=== PATIENT | male | born 1980 | race American Indian/Alaskan Native ===

== ENCOUNTER 2019-10-14 14:55 | Inpatient (IN) | payer OTHER ==
--- NOTE | 2019-10-14 16:20 | XRay Report ---
CHEST 2 VIEWS INDICATION: SOB. COMPARISON: 10/05/2018 FINDINGS: Support devices: None. Heart: Within normal limits. Lungs/pleura: Scattered bilateral focal lung densities have developed which are most pronounced in th e lingular region. No pleural fluid or pneumothorax. No pneumothorax. Additional findings: None. IMPRESSION: Patchy bilateral lung densities concerning for atypical pneumonia or viral infection. Please correlat e with the patient's clinical presentation. Signer Name: Stu Boston Jr, MD Signed: 10/14/2019 4:16 PM Workstation Name: [id number]
--- NOTE | 2019-10-14 17:28 | Emergency Department Report ---
ED Shortness of Breath HPI - General Chief Complaint: Dyspnea/Respdistress Stated Complaint: ASTHMA Time Seen by Provider: 10/14/19 16:40 Source: patient Mode of arrival: Ambulatory Limitations: No Limitations - History of Present Illness Initial Comments: Mr. Osborn is a 39-year-old male with history of intermittent asthma for the last 12 years who presents with 3 days of fever cough wheezing shortness of breath. Generalized malaise and fatigue. 2 weeks ago travel to and from [facility] to attend a . MD Complaint: shortness of breath, cough -: Gradual, days(s) (3) Severity: moderate Consistency: constant Improves With: nothing Worsens With: nothing Known History Of: asthma Context: recent travel Associated Symptoms: fever, cough, other (Shortness of breath wheezing) - Related Data Previous Rx's Medication Instructions Recorded Last Taken Type Albuterol Sulfate [Ventolin Hfa] 18 gm IH QID PRN #1 hfa.aer.ad 10/05/18 Unknown Rx Ibuprofen [Motrin 800 MG tab] 800 mg PO Q8HR PRN #15 tablet 10/05/18 Unknown Rx Allergies Allergy/AdvReac Type Severity Reaction Status Date / Time chocolate flavor Allergy Unknown Verified 10/14/19 14:58 shellfish derived Allergy Unknown Verified 10/14/19 14:58 strawberry Allergy Unknown Verified 10/14/19 14:58 ED Review of Systems ROS: Stated complaint: ASTHMA Other details as noted in HPI Comment: All other systems reviewed and negative Constitutional: fever Respiratory: cough, shortness of breath, wheezing ED Past Medical Hx - Past Medical History Previous Medical History?: Yes Hx Asthma: Yes - Surgical History Past Surgical History?: No - Social History Smoking Status: Never Smoker - Medications Home Medications: Home Medications Medication Instructions Recorded Confirmed Last Taken Type Albuterol Sulfate [Ventolin Hfa] 18 gm IH QID PRN #1 hfa.aer.ad 10/05/18 Unknown Rx Ibuprofen [Motrin 800 MG tab] 800 mg PO Q8HR PRN #15 tablet 10/05/18 Unknown Rx ED Physical Exam - General Limitations: No Limitations General appearance: alert, in no apparent distress - Head Head exam: Present: atraumatic, normocephalic - Eye Eye exam: Present: normal appearance - ENT ENT exam: Present: mucous membranes moist - Neck Neck exam: Present: normal inspection, full ROM - Respiratory Respiratory exam: Present: normal lung sounds bilaterally. Absent: respiratory distress, wheezes, rales, rhonchi, chest wall tenderness, accessory muscle use - Cardiovascular Cardiovascular Exam: Present: regular rate, normal rhythm, normal heart sounds. Absent: systolic murmur, diastolic murmur, rubs, gallop - GI/Abdominal GI/Abdominal exam: Present: soft, normal bowel sounds - Rectal Rectal exam: Present: deferred - Extremities Exam Extremities exam: Present: normal inspection - Back Exam Back exam: Present: normal inspection - Neurological Exam Neurological exam: Present: alert, oriented X3 - Psychiatric Psychiatric exam: Present: normal affect, normal mood - Skin Skin exam: Present: warm, dry, intact, normal color. Absent: rash ED Course Vital Signs 10/14/19 10/14/19 15:03 16:15 Temperature 98.0 F Respiratory 20 Rate Blood Pressure 139/86 O2 Sat by Pulse 96 Oximetry ED Medical Decision Making - Lab Data Result diagrams: 10/14/19 16:52 10/14/19 17:28 - Radiology Data Radiology results: report reviewed Chest x-ray revealed scattered bilateral focal lung densities patchy bilateral lung disease concerning for atypical pneumonia - Medical Decision Making Mr. Osborn is a 39-year-old male with history of asthma who presents with shortness of breath fever cough for the past 3 days. With history of recent travel multifocal pneumonia strongly suspect COVID 19 infection. PUI survey has been completed with [facility]. Plaquenil zinc therapy initiated in the emergency department. Patient is requiring oxygen therapy. Room air saturation while at rest 87%. Admitted to the hospitalist service Work-up notable for elevated CRP, LDH, ferritin, d-dimer Critical care attestation.: If time is entered above; I have spent that time in minutes in the direct care of this critically ill patient, excluding procedure time. ED Disposition Clinical Impression: Acute respiratory failure with hypoxia, Suspected 2019 novel coronavirus infection Disposition: OP ADMIT IP TO THIS HOSP Is pt being admited?: Yes Does the pt Need Aspirin: No Condition: Stable
[2019-10-14] MEDS: cefTRIAXone/NS 2 GM/100 ML 2 GM/100 ML BAG IV SCH (17:30)
[2019-10-14 17:42] LABS: Basophils % (Auto) 0.3 % (0.0-1.8); Eosinophils % (Auto) 0.1 % (0.0-4.3); Hematocrit 44.2 % (35.5-45.6); Lymphocytes # (Auto) 1.6 K/mm3 (1.2-5.4); Mean Corpuscular HGB Conc 34 % (32-34); Mean Corpuscular Volume 81 fl (84-94); Monocytes # (Auto) 0.9 K/mm3 (0.0-0.8); Monocytes % (Auto) 10.8 % (0.0-7.3); Platelet Count 339 K/mm3 (140-440); Red Blood Count 5.49 M/mm3 (3.65-5.03); Red Cell Distribution Width 14.2 % (13.2-15.2)
[2019-10-14 17:57] LABS: Alanine Aminotransferase 47 units/L (7-56); Albumin 3.7 g/dL (3.9-5); BUN/Creatinine Ratio 10; Blood Urea Nitrogen 9 mg/dL (9-20); Calcium 9.1 mg/dL (8.4-10.2); Hemolysis Index 6
--- NOTE | 2019-10-14 18:36 | History and Physical Report ---
History of Present Illness Chief complaint: I am having problems breathing History of present illness: 39 YO Male with Mild Intermittent Asthma, Obesity presents to ED for evaluation. Pt states that he has experienced generalized weakness, malaise, body aches, dry cough, and shortness of breath over the past 3 with persistently worsening symptoms over the same timeframe. Pt transported to [facility] via private vehicle. Pt seen and evaluated in ED. Lab and imaging studies reviewed. Pt found to have bilateral infiltrates on Chest X ray and is consistent with Pneumonia as well as pulse oximetry of 87% on room air which is consistent with an acute hypoxemic respiratory failure. Patient also reports clinical symptoms concerning for COVID-19 infection. COVID 19 screening documentation submitted to health department by ED staff. Pt initiated on Pneumonia protocol and admitted to Medical Floor. Patient acknowledges recent travel to [place] by airplane approximately 2 weeks ago. Patient reports onset of symptoms approximately 1 week after his return from [place]. Pt denies fever, chills, CP, Palpitations, NVD, Trauma, BRBPR, Skin Rash, or Known ill contacts. No prior admission for review. No medication listed for reconciliation at time of admission. Past History Past Medical History: other (See HPI) Past Surgical History: No surgical history, Other (Reviewed) Social history: , lives with family. denies: smoking, alcohol abuse, prescription drug abuse Family history: hypertension Medications and Allergies Allergies Allergy/AdvReac Type Severity Reaction Status Date / Time chocolate flavor Allergy Unknown Verified 10/14/19 14:58 shellfish derived Allergy Unknown Verified 10/14/19 14:58 strawberry Allergy Unknown Verified 10/14/19 14:58 Home Medications Medication Instructions Recorded Confirmed Last Taken Type Albuterol Sulfate [Ventolin Hfa] 18 gm IH QID PRN #1 hfa.aer.ad 10/05/18 Unknown Rx Ibuprofen [Motrin 800 MG tab] 800 mg PO Q8HR PRN #15 tablet 10/05/18 Unknown Rx Active Meds: Active Medications Hydroxychloroquine Sulfate (Plaquenil) 400 mg PO BID OVI Stop: 10/14/19 22:01 Hydroxychloroquine Sulfate (Plaquenil) 200 mg PO BID OVI Stop: 10/18/19 22:01 Ceftriaxone Sodium (Rocephin/Ns 2 Gm/100 Ml) 2 gm in 100 mls @ 200 mls/hr IV Q24HR OVI; Protocol Last Admin: 10/14/19 17:30 Dose: 200 mls/hr Documented by: Zinc Sulfate (Zinc Sulfate) 220 mg PO BID [facility] Review of Systems Constitutional: fatigue, weakness, malaise, lethargy, no weight loss, no weight gain, no fever, no chills Ears, nose, mouth and throat: no ear pain, no ear discharge, no tinnitis, no decreased hearing, no nose pain Cardiovascular: no chest pain, no orthopnea, no palpitations Respiratory: cough, shortness of breath, no hemoptysis, no congestion, no wheezing, no pleurisy, no snoring Gastrointestinal: no nausea, no vomiting, no diarrhea, no constipation Genitourinary Male: no hematuria, no flank pain, no discharge, no urinary frequency, no urinary hesitancy Rectal: no pain, no incontinence, no bleeding Musculoskeletal: no neck stiffness, no neck pain, no shooting arm pain, no arm numbness/tingling, no low back pain Integumentary: no rash, no pruritis, no redness, no sores, no wounds Neurological: no transient paralysis, no paralysis, no weakness, no parathesias, no numbness, no tingling, no seizures Psychiatric: no anxiety, no memory loss, no change in sleep habits, no sleep disturbances, no insomnia, no hypersomnia Endocrine: no cold intolerance, no heat intolerance, no polyphagia, no excessive thirst, no polydipsia Hematologic/Lymphatic: no easy bruising, no easy bleeding, no lymphadenopathy, no lymphedema Allergic/Immunologic: no urticaria, no allergic rhinitis, no persistent infections, no anaphylaxis Exam - Constitutional Vitals: Temp Pulse Resp BP Pulse Ox 98.0 F 20 139/86 96 10/14/19 15:03 10/14/19 15:03 10/14/19 15:03 10/14/19 16:15 General appearance: Present: mild distress, obese - EENT Eyes: Present: PERRL ENT: hearing intact, clear oral mucosa - Neck Neck: Present: supple, normal ROM - Respiratory Respiratory effort: labored, accessory muscle use, stridor Respiratory: bilateral: diminished, rhonchi - Cardiovascular Heart Sounds: Present: S1 & S2. Absent: rub, click - Extremities Extremities: pulses symmetrical, No edema Peripheral Pulses: within normal limits - Abdominal General gastrointestinal: Present: soft, non-tender, non-distended, normal bowel sounds Male genitourinary: Present: normal - Integumentary Integumentary: Present: clear, warm, dry - Musculoskeletal Musculoskeletal: generalized weakness - Psychiatric Psychiatric: appropriate mood/affect, intact judgment & insight - Neurologic Neurologic: CNII-XII intact, moves all extremities Results - Labs CBC & Chem 7: 10/14/19 16:52 10/14/19 17:28 Labs: Abnormal lab results 10/14/19 10/14/19 10/14/19 Range/Units 16:52 16:52 16:52 RBC 5.49 H (3.65-5.03) M/mm3 MCV 81 L (84-94) fl MCH 27 L (28-32) pg Placer % (Auto) 10.8 H (0.0-7.3) % Placer # 0.9 H (0.0-0.8) K/mm3 D-Dimer 425.37 H (0-234) ng/mlDDU Sodium (137-145) mmol/L Chloride (98-107) mmol/L Glucose (75-100) mg/dL Ferritin 548.4 H (13.0-400.0) ng/mL AST (5-40) units/L Lactate Dehydrogenase (91-180) units/L C-Reactive Protein (0.00-1.30) mg/dL Albumin (3.9-5) g/dL 10/14/19 10/14/19 Range/Units 17:28 17:28 RBC (3.65-5.03) M/mm3 MCV (84-94) fl MCH (28-32) pg Placer % (Auto) (0.0-7.3) % Placer # (0.0-0.8) K/mm3 D-Dimer (0-234) ng/mlDDU Sodium 135 L (137-145) mmol/L Chloride 96.2 L (98-107) mmol/L Glucose 104 H (75-100) mg/dL Ferritin (13.0-400.0) ng/mL AST 41 H (5-40) units/L Lactate Dehydrogenase 453 H (91-180) units/L C-Reactive Protein 9.40 H (0.00-1.30) mg/dL Albumin 3.7 L (3.9-5) g/dL Assessment and Plan - Patient Problems (1) Bilateral pneumonia Current Visit: Yes Status: Acute Plan to address problem: Pneumonia protocol, IV antibiotic therapy, pulse oximetry, chest x-ray, CBC, CMP, blood culture, nebulizer therapy. (2) Obesity hypoventilation syndrome Current Visit: Yes Status: Acute Plan to address problem: Submental oxygen, nebulizer therapy, noninvasive positive pressure ventilation as clinically indicated. (3) Acute respiratory failure with hypoxia Current Visit: Yes Status: Acute Plan to address problem: Supplemental oxygen, nebulizer therapy, pulse oximetry, chest x-ray, supportive care, pulmonary toilet. (4) Suspected 2019 novel coronavirus infection Current Visit: Yes Status: Acute Plan to address problem: D-dimer, ferritin, LDH level, chest x-ray, screening documentation sent to health department. (5) DVT prophylaxis Current Visit: Yes Status: Acute Plan to address problem: SCD to bilateral lower extremities while in bed, prophylactic heparin
[2019-10-14] MEDS ORDERED: ONDANSETRON 4 MG/2 ML INJ IV PRN (18:38)
[2019-10-14] MEDS ORDERED: ACETAMINOPHEN 325 MG TAB PO PRN (18:38)
[2019-10-14] MEDS: HYDROXYCHLOROQUINE 200 MG TAB PO SCH ×2 (18:52→23:24)
[2019-10-14] MEDS: HEPARIN 5,000 UNIT/1 ML VIAL SUB-Q SCH (23:24)
[2019-10-14] MEDS: ZINC SULFATE 220 MG CAP PO SCH (23:24)
[2019-10-15 06:50] LABS: Basophils % (Auto) 0.4 % (0.0-1.8); Eosinophils % (Auto) 0.3 % (0.0-4.3); Hematocrit 45.1 % (35.5-45.6); Lymphocytes # (Auto) 1.4 K/mm3 (1.2-5.4); Lymphocytes % (Auto) 18.4 % (13.4-35.0); Mean Corpuscular HGB Conc 33 % (32-34); Mean Corpuscular Volume 81 fl (84-94); Monocytes # (Auto) 0.8 K/mm3 (0.0-0.8); Monocytes % (Auto) 11.2 % (0.0-7.3); Platelet Count 338 K/mm3 (140-440); Red Blood Count 5.58 M/mm3 (3.65-5.03)
[2019-10-15 07:17] LABS: BUN/Creatinine Ratio 12; Blood Urea Nitrogen 11 mg/dL (9-20); Hemolysis Index 141
[2019-10-15] MEDS: HEPARIN 5,000 UNIT/1 ML VIAL SUB-Q SCH ×2 (09:11→21:26)
[2019-10-15] MEDS: ZINC SULFATE 220 MG CAP PO SCH (09:11)
[2019-10-15] MEDS: HYDROXYCHLOROQUINE 200 MG TAB PO SCH ×2 (09:11→21:26)
[2019-10-15] MEDS: cefTRIAXone/NS 2 GM/100 ML 2 GM/100 ML BAG IV SCH (10:44)
[2019-10-16] MEDS ORDERED: MORPHINE 2 MG/1 ML INJ IV ONE (00:46)
[2019-10-16 08:49] LABS: C-Reactive Protein 9.2 mg/dL (0.00-1.30)
[2019-10-16] MEDS: HYDROXYCHLOROQUINE 200 MG TAB PO SCH ×2 (09:21→22:15)
[2019-10-16] MEDS: HEPARIN 5,000 UNIT/1 ML VIAL SUB-Q SCH ×2 (09:21→22:16)
[2019-10-16] MEDS: cefTRIAXone/NS 2 GM/100 ML 2 GM/100 ML BAG IV SCH (09:22)
[2019-10-16] MEDS: ZINC SULFATE 220 MG CAP PO SCH (11:30)
--- NOTE | 2019-10-16 14:28 | Progress Note ---
Assessment and Plan (1) Bilateral pneumonia Current Visit: Yes Status: Acute Plan to address problem: Cont abx Covid test pending Improving (2) Obesity hypoventilation syndrome Current Visit: Yes Status: Acute Plan to address problem: CPAP prn (3) Acute respiratory failure with hypoxia Current Visit: Yes Status: Acute Plan to address problem: O2 supplementL (4) Suspected 2019 novel coronavirus infection Current Visit: Yes Status: Acute Plan to address problem: iNFLAMMATORY MARKErS INCREASED (5) DVT prophylaxis Current Visit: Yes Status: Acute Plan to address problem: SCD to bilateral lower extremities while in bed, prophylactic heparin Subjective Date of service: 10/16/19 Objective - Constitutional Vitals: Vital Signs - 12hr 10/16/19 10/16/19 10/16/19 05:11 10:00 11:24 Temperature 98.1 F 97.5 F L Pulse Rate 96 H 84 Respiratory 18 24 Rate Blood Pressure 102/69 123/80 O2 Sat by Pulse 94 96 93 Oximetry General appearance: Present: no acute distress, well-nourished - EENT Eyes: PERRL, EOM intact ENT: hearing intact, clear oral mucosa Ears: bilateral: normal - Neck Neck: supple, normal ROM - Respiratory Respiratory effort: normal Respiratory: bilateral: CTA - Breasts Breasts: normal - Cardiovascular Rhythm: regular Heart Sounds: Present: S1 & S2. Absent: gallop, rub Extremities: pulses intact, No edema, normal color, Full ROM - Gastrointestinal General gastrointestinal: Present: soft, non-tender, non-distended, normal bowel sounds - Genitourinary Male genitourinary: normal - Integumentary Integumentary: clear, warm, dry - Musculoskeletal Musculoskeletal: 1, strength equal bilaterally - Neurologic Neurologic: moves all extremities - Psychiatric Psychiatric: memory intact, appropriate mood/affect, intact judgment & insight - Labs CBC & Chem 7: 10/15/19 05:47 10/15/19 05:47 Labs: Abnormal lab results 10/16/19 10/16/19 10/16/19 Range/Units 07:41 07:41 07:41 D-Dimer 399.05 H (0-234) ng/mlDDU Ferritin 541.7 H (13.0-400.0) ng/mL Lactate Dehydrogenase 364 H (91-180) units/L C-Reactive Protein 9.20 H (0.00-1.30) mg/dL
--- NOTE | 2019-10-16 14:33 | Progress Note ---
Assessment and Plan (1) Bilateral pneumonia Current Visit: Yes Status: Acute Plan to address problem: Cont abx Covid test pending Improving (2) Obesity hypoventilation syndrome Current Visit: Yes Status: Acute Plan to address problem: CPAP prn 3) Acute respiratory failure with hypoxia Supplemental oxygen L (4) Suspected 2019 novel coronavirus infection Current Visit: Yes Status: Acute Plan to address problem: iNFLAMMATORY MARKErS INCREASED Coreg form and tests pendind Checked the [employer] (5) DVT prophylaxis Current Visit: Yes Status: Acute Plan to address problem: SCD to bilateral lower extremities while in bed, prophylactic heparin Subjective Date of service: 10/16/19 Principal diagnosis: Bilateral pneumonia Interval history: 39 YO Male with Mild Intermittent Asthma, Obesity presents to ED for evaluation. Pt states that he has experienced generalized weakness, malaise, body aches, dry cough, and shortness of breath over the past 3 with persistently worsening symptoms over the same timeframe. Pt transported to [facility] via private vehicle. Pt seen and evaluated in ED. Lab and imaging studies reviewed. Pt found to have bilateral infiltrates on Chest X ray and is consistent with Pneumonia as well as pulse oximetry of 87% on room air which is consistent with an acute hypoxemic respiratory failure. Patient also reports clinical symptoms concerning for COVID-19 infection. COVID 19 screening documentation submitted to health department by ED staff. Pt initiated on Pneumonia protocol and admitted to [facility] dical Floor. Patient acknowledges recent travel to [place] by airplane approximately 2 weeks ago. Patient reports onset of symptoms approximately 1 week after his return from [place]. Pt denies fever, chills, CP, Palpitations, NVD, Trauma, BRBPR, Skin Rash, or Known ill contacts. No prior admission for review. No medication listed for reconciliation at time of admission. Symptomatically better Coronavirus testing pending On oxygen Objective - Constitutional Vitals: Vital Signs - 12hr 10/16/19 10/16/19 10/16/19 05:11 10:00 11:24 Temperature 98.1 F 97.5 F L Pulse Rate 96 H 84 Respiratory 18 24 Rate Blood Pressure 102/69 123/80 O2 Sat by Pulse 94 96 93 Oximetry General appearance: Present: mild distress, well-nourished - EENT Eyes: PERRL, EOM intact ENT: hearing intact, clear oral mucosa Ears: bilateral: normal - Neck Neck: supple, normal ROM - Respiratory Respiratory effort: normal Respiratory: bilateral: CTA, wheezing (Scattered rhonchi) - Breasts Breasts: normal - Cardiovascular Heart rate: 78 Rhythm: regular Heart Sounds: Present: S1 & S2. Absent: gallop, rub Extremities: pulses intact, No edema, normal color, Full ROM - Gastrointestinal General gastrointestinal: Present: soft, non-tender, non-distended, normal bowel sounds - Genitourinary Male genitourinary: normal - Integumentary Integumentary: clear, warm, dry - Musculoskeletal Musculoskeletal: 1, strength equal bilaterally - Neurologic Neurologic: moves all extremities - Psychiatric Psychiatric: memory intact, appropriate mood/affect, intact judgment & insight - Labs CBC & Chem 7: 10/15/19 05:47 10/15/19 05:47 Labs: Abnormal lab results 10/16/19 10/16/19 10/16/19 Range/Units 07:41 07:41 07:41 D-Dimer 399.05 H (0-234) ng/mlDDU Ferritin 541.7 H (13.0-400.0) ng/mL Lactate Dehydrogenase 364 H (91-180) units/L C-Reactive Protein 9.20 H (0.00-1.30) mg/dL
[2019-10-16 17:45] LABS: Basophils % (Auto) 0.4 % (0.0-1.8); Eosinophils # (Auto) 0.1 K/mm3 (0.0-0.4); Eosinophils % (Auto) 0.7 % (0.0-4.3); Hematocrit 47.6 % (35.5-45.6); Hemoglobin 15.5 gm/dl (11.8-15.2); Lymphocytes # (Auto) 2.3 K/mm3 (1.2-5.4); Mean Corpuscular HGB Conc 33 % (32-34); Mean Corpuscular Volume 82 fl (84-94); Monocytes % (Auto) 12.2 % (0.0-7.3); Platelet Count 458 K/mm3 (140-440); Red Blood Count 5.84 M/mm3 (3.65-5.03); Red Cell Distribution Width 13.9 % (13.2-15.2)
[2019-10-16 18:08] LABS: Alanine Aminotransferase 52 units/L (7-56); Albumin 3.7 g/dL (3.9-5); BUN/Creatinine Ratio 9; Blood Urea Nitrogen 8 mg/dL (9-20); Calcium 9.6 mg/dL (8.4-10.2); Hemolysis Index 23
[2019-10-17] MEDS: cefTRIAXone/NS 2 GM/100 ML 2 GM/100 ML BAG IV SCH (09:07)
[2019-10-17] MEDS: HYDROXYCHLOROQUINE 200 MG TAB PO SCH ×2 (09:07→21:27)
[2019-10-17] MEDS: SODIUM CHLORIDE 0.9% 1000 ML 1,000 ML IV SCH ×2 (09:07→21:30)
[2019-10-17] MEDS: HEPARIN 5,000 UNIT/1 ML VIAL SUB-Q SCH ×2 (09:08→21:27)
[2019-10-17] MEDS: ZINC SULFATE 220 MG CAP PO SCH (11:20)
--- NOTE | 2019-10-17 15:08 | Progress Note ---
Assessment and Plan (1) Bilateral pneumonia Current Visit: Yes Status: Acute Plan to address problem: Cont abx Covid test positive Improving (2) Obesity hypoventilation syndrome Current Visit: Yes Status: Acute Plan to address problem: CPAP prn Improving 3) Acute respiratory failure with hypoxia Supplemental oxygen Improving L (4) Suspected 2019 novel coronavirus infection Current Visit: Yes Status: Acute Plan to address problem: iNFLAMMATORY MARKErS INCREASED Coreg form and tests pendind Checked the sharepoint Positive for coronavirus Patient counseled Possible discharge tomorrow (5) DVT prophylaxis Current Visit: Yes Status: Acute Plan to address problem: SCD to bilateral lower extremities while in bed, prophylactic heparin Subjective Date of service: 10/17/19 Principal diagnosis: Bilateral pneumonia Interval history: 39 YO Male with Mild Intermittent Asthma, Obesity presents to ED for evaluation. Pt states that he has experienced generalized weakness, malaise, body aches, dry cough, and shortness of breath over the past 3 with persistently worsening symptoms over the same timeframe. Pt transported to [facility] via private vehicle. Pt seen and evaluated in ED. Lab and imaging studies reviewed. Pt found to have bilateral infiltrates on Chest X ray and is consistent with Pneumonia as well as pulse oximetry of 87% on room air which is consistent with an acute hypoxemic respiratory failure. Patient also reports clinical symptoms concerning for COVID-19 infection. COVID 19 screening documentation submitted to health department by ED staff. Pt initiated on Pneumonia protocol and admitted to Medical Floor. Patient acknowledges recent travel to [place] by airplane approximately 2 weeks ago. Patient reports onset of symptoms approximately 1 week after his return from [place]. Pt denies fever, chills, CP, Palpitations, NVD, Trauma, BRBPR, Skin Rash, or Known ill contacts. No prior admission for review. No medication listed for reconciliation at time of admission. Symptomatically better Coronavirus testing came positive today On minimal oxygen Wants to go home with oxygen because he feels better on oxygen and he wants okay from his pocket Objective - Constitutional Vitals: Vital Signs - 12hr 10/17/19 10/17/19 05:00 11:04 Temperature 98.6 F 98.2 F Pulse Rate 86 94 H Respiratory 20 18 Rate Blood Pressure 115/77 108/68 O2 Sat by Pulse 95 96 Oximetry General appearance: Present: no acute distress, well-nourished - EENT Eyes: PERRL, EOM intact ENT: hearing intact, clear oral mucosa Ears: bilateral: normal - Neck Neck: supple, normal ROM - Respiratory Respiratory effort: normal Respiratory: bilateral: CTA - Breasts Breasts: normal - Cardiovascular Heart rate: 78 Rhythm: regular Heart Sounds: Present: S1 & S2. Absent: gallop, rub Extremities: pulses intact, No edema, normal color, Full ROM - Gastrointestinal General gastrointestinal: Present: soft, non-tender, non-distended, normal bowel sounds - Genitourinary Male genitourinary: normal - Integumentary Integumentary: clear, warm, dry - Musculoskeletal Musculoskeletal: 1, strength equal bilaterally - Neurologic Neurologic: moves all extremities - Psychiatric Psychiatric: memory intact, appropriate mood/affect, intact judgment & insight - Allied health notes Allied health notes reviewed: nursing, case management - Labs CBC & Chem 7: 10/16/19 17:22 10/16/19 17:22 Labs: Abnormal lab results 10/16/19 10/16/19 Range/Units 17:22 17:22 RBC 5.84 H (3.65-5.03) M/mm3 Hgb 15.5 H (11.8-15.2) gm/dl Hct 47.6 H (35.5-45.6) % MCV 82 L (84-94) fl MCH 27 L (28-32) pg Plt Count 458 H (140-440) K/mm3 Harmon % (Auto) 12.2 H (0.0-7.3) % Harmon # 1.0 H (0.0-0.8) K/mm3 Chloride 96.9 L (98-107) mmol/L BUN 8 L (9-20) mg/dL Albumin 3.7 L (3.9-5) g/dL
[2019-10-18] MEDS: HEPARIN 5,000 UNIT/1 ML VIAL SUB-Q SCH (09:26)
[2019-10-18] MEDS: HYDROXYCHLOROQUINE 200 MG TAB PO SCH (09:26)
[2019-10-18] MEDS: SODIUM CHLORIDE 0.9% 1000 ML 1,000 ML IV SCH (10:13)
[2019-10-18] MEDS: cefTRIAXone/NS 2 GM/100 ML 2 GM/100 ML BAG IV SCH (10:42)
[2019-10-18] MEDS: ZINC SULFATE 220 MG CAP PO SCH (11:00)
[2019-10-18 16:26] VITALS: BP 123/87
--- NOTE | 2019-10-18 17:32 | Discharge Summary ---
Providers - Providers Date of Admission: 10/14/19 18:38 Date of discharge: 10/18/19 Attending physician: ANDREA BOWENS Primary care physician: CHIEF SCIENTIST Hospitalization Condition: Stable Hospital course: 39 YO Male with Mild Intermittent Asthma, Obesity presents to ED for evaluation. Pt states that he has experienced generalized weakness, malaise, body aches, dry cough, and shortness of breath over the past 3 with persistently worsening symptoms over the same timeframe. Pt transported to [facility] via private vehicle. Pt seen and evaluated in ED. Lab and imaging studies reviewed. Pt found to have bilateral infiltrates on Chest X ray and is consistent with Pneumonia as well as pulse oximetry of 87% on room air which is consistent with an acute hypoxemic respiratory failure. Patient also reports clinical symptoms concerning for COVID-19 infection. COVID 19 screening documentation submitted to health department by ED staff. Pt initiated on Pneumonia protocol and admitted to Medical Floor. Patient acknowledges recent travel to [place] by airplane approximately 2 weeks ago. Patient reports onset of symptoms approximately 1 week after his return from [place]. Pt denies fever, chills, CP, Palpitations, NVD, Trauma, BRBPR, Skin Rash, or Known ill contacts. No prior admission for review. No medication listed for reconciliation at time of admission. Patient is positive for coronavirus infection Patient was informed Patient was did well on 10/17/2019 and 10/18/2019 His room oxygen saturations were between 93 and 96 did not need any oxygen Patient counseled about quarantining himself or other 14 days and to continue oral antibiotics patient was given instructions on how to contact himself and the dangers of him exposing others to coronavirus infection. (1) Bilateral pneumonia Current Visit: Yes Status: Acute Plan to address problem: Cont abx Covid test positive Improving Patient being discharged Patient to quarantine himself for 14 days (2) Obesity hypoventilation syndrome Current Visit: Yes Status: Acute Plan to address problem: CPAP prn Improving 3) Acute respiratory failure with hypoxia Supplemental oxygen Improving No need for home oxygen Patient to contact himself for 14 days L (4) Suspected 2019 novel coronavirus infection Current Visit: Yes Status: Acute Plan to address problem: iNFLAMMATORY MARKErS INCREASED Coreg form and tests pendind Checked the sharepoint Positive for coronavirus Patient counseled discharge today Strict isolation for 14 days Injury from ID infection control to follow with the patient. Disposition: DC-01 TO HOME OR SELFCARE Core Measure Documentation - Palliative Care Palliative Care/ Comfort Measures: Not Applicable - Core Measures Any of the following diagnoses?: none Exam - Constitutional Vitals: Temp Pulse Resp BP Pulse Ox 97.3 F L 91 H 20 123/87 95 10/18/19 16:11 10/18/19 16:11 10/18/19 16:11 10/18/19 16:11 10/18/19 16:11 General appearance: Present: no acute distress, well-nourished - EENT Eyes: Present: PERRL ENT: hearing intact, clear oral mucosa - Neck Neck: Present: supple, normal ROM - Respiratory Respiratory effort: normal Respiratory: bilateral: CTA - Cardiovascular Heart Sounds: Present: S1 & S2. Absent: rub, click - Extremities Extremities: pulses symmetrical, No edema Peripheral Pulses: within normal limits - Abdominal General gastrointestinal: Present: soft, non-tender, non-distended, normal bowel sounds Male genitourinary: Present: normal - Integumentary Integumentary: Present: clear, warm, dry - Musculoskeletal Musculoskeletal: gait normal, strength equal bilaterally - Psychiatric Psychiatric: appropriate mood/affect, intact judgment & insight - Neurologic Neurologic: CNII-XII intact, moves all extremities Plan Activity: no restrictions Diet: regular Follow up with: PRIMARY CAREMD [Primary Care Provider] - 7 Days
== END 2019-10-18 18:28 | disposition home or self-care (01) | DRG 177 ==
LOC: ED 14:55 → 3A 18:38
PROVIDERS: ADMIT Internal Medicine; ATTEND Internal Medicine
DX: U07.1 COVID-19 (principal); J12.89 Other viral pneumonia; J96.01 Acute respiratory failure with hypoxia; E66.2 Morbid (severe) obesity with alveolar hypoventilation; Z68.35 Body mass index [BMI] 35.0-35.9, adult; Z71.3 Dietary counseling and surveillance; J45.909 Unspecified asthma, uncomplicated; Z91.013 Allergy to seafood; Z91.018 Allergy to other foods; Z82.49 Family history of ischemic heart disease and other diseases of the circulatory system
CPT/HCPCS: 36415; 71046; 80048; 80053; 82140; 82728; 83615; 83735; 85025; 85379; 86140; 87040; 94760; G0378; J0696; J1644; J2270; J7030